=== PATIENT | male | born 2000 ===

== ENCOUNTER 2020-04-30 07:39 | Outpatient (CLI) | payer BC ==
--- NOTE | 2020-04-30 08:31 | CT ---
CT abdomen and pelvis with IV and oral contrast HISTORY: Abdominal pain. Weight loss. FINDINGS: The lung bases are clear. The liver, spleen, kidneys, adrenal glands, and pancreas have a n ormal CT appearance. Urinary bladder is unremarkable. Large amount of stool is present throughout the colon and rectum. No evidence of bowel obstruction or inflammation. Appendix is not inflamed. There is incomplete fusion of the posterior elements of the sacrum. IMPRESSION : Constipation. No acute abnormalities are demonstrated.
[2020-04-30] MEDS ORDERED: Iopamidol-370 76% 500 ML 1 ML ONE (13:40)
== END 2020-04-30 07:40 | disposition home or self-care (01) ==
LOC: BICCT 07:39
PROVIDERS: ATTEND Internal Medicine Gastroenterology
DX: R10.13 Epigastric pain (principal); R63.4 Abnormal weight loss; K59.00 Constipation, unspecified
CPT/HCPCS: 74177; Q9967